=== PATIENT | male | born 1945 | race Caucasian/White ===

== ENCOUNTER 2017-01-16 08:30 | Outpatient (CLI) | payer MEDICARE, OTHER ==
[2017-01-16 09:19] LABS: Bilirubin Negative (Negative); Blood, Urine Negative (Negative); Glucose, Urine (Dipstick) Negative (Negative); Ketone, Urine Negative (Negative); Nitrite Negative (Negative); Protein, Urine (Dipstick) 30 mg/dL (Neg-Trace); Urobilinogen 0.2 mg/dL (0.2-1.0)
[2017-01-16 09:31] LABS: #Basophils 0.1 thou/uL (0.0-0.2); #Eosinphils 1.4 thou/uL (0.0-0.7); #Lymphocytes 1.2 thou/uL (1.20-3.40); #Monocytes 1.1 thou/uL (0.11-0.59); #Neutrophils 6.3 thou/uL (1.40-6.50); %Basophils 0.9 % (0.0-1.0); %Monocytes 10.5 % (0.0-10.0); Hematocrit 44.2 % (42.0-52.0); Mean Platelet Volume 6.3 fL (7.4-10.4); Red Blood Cell (RBC) Count 5.17 mill/uL (4.70-6.10)
[2017-01-16 09:43] LABS: Hemoglobin A1c 6.3 % (4.0-6.0)
[2017-01-16 09:44] LABS: ALT (SGPT) 19 U/L (0-55); AST (SGOT) 19 U/L (5-34); Alkaline Phosphatase 94 U/L (40-150); Anion Gap 16 mmol/L (10-20); BUN (Urea Nitrogen) 22 mg/dL (8.4-25.7); Bilirubin, Total 0.6 mg/dL (0.2-1.2); Calc. Creatinine Clearance 0 mL/min (70-130); Calcium 9.7 mg/dL (7.8-10.44); Carbon Dioxide 25 mmol/L (23-31); Chloride 101 mmol/L (98-107); Estimated GFR-MDRD 63; Globulin 3.5 g/dL (2.4-3.5); LDL Cholesterol, Calculated 87 mg/dL; Protein, Total 7.7 g/dL (5.8-8.1)
[2017-01-16 09:50] LABS: RBC/HPF 0-3 HPF (0-3)
[2017-01-16 16:39] LABS: Microalbumin Urine 13.2 mg/dL (0.5-50.0)
== END 2017-01-16 08:31 | disposition home or self-care (01) ==
LOC: NAV LAB 08:30
PROVIDERS: ATTEND Family Medicine
DX: Z11.59 Encounter for screening for other viral diseases (principal); I10 Essential (primary) hypertension; E55.9 Vitamin D deficiency, unspecified; E78.2 Mixed hyperlipidemia
CPT/HCPCS: 80053; 80061; 81001; 82043; 82306; 83036; 84443; 85025; 86803

== ENCOUNTER 2017-05-01 08:02 | Outpatient (CLI) | payer MEDICARE, OTHER ==
[2017-05-01 08:25] LABS: Hemoglobin A1c 6.7 % (4.0-6.0)
== END 2017-05-01 08:03 | disposition home or self-care (01) ==
LOC: NAV LAB 08:02
PROVIDERS: ATTEND Family Medicine
DX: E11.9 Type 2 diabetes mellitus without complications (principal)
CPT/HCPCS: 36415; 83036

== ENCOUNTER 2017-08-13 08:39 | Outpatient (CLI) | payer MEDICARE, OTHER ==
[2017-08-13 12:00] LABS: Hemoglobin A1c 6.5 % (4.0-6.0)
== END 2017-08-13 08:40 | disposition home or self-care (01) ==
LOC: NAV LAB 08:39
PROVIDERS: ATTEND Family Medicine
DX: E11.9 Type 2 diabetes mellitus without complications (principal)
CPT/HCPCS: 83036

== ENCOUNTER 2017-08-15 08:12 | Outpatient (CLI) | payer MEDICARE, OTHER ==
--- NOTE | 2017-08-15 11:02 | ULT ---
ABDOMINAL AORTIC SONOGRAM: Date: 08/15/17 HISTORY: Z13.6. FINDINGS: Good color and spectral Doppler flow is present within the abdominal aorta. Greatest AP diameter is 1.6 cm. No free fluid is evident within the retroperitoneum. IMPRESSION: No evidence of abdominal aortic aneurysm. POS: [id number]
== END 2017-08-15 08:13 | disposition home or self-care (01) ==
LOC: NAV ULT 08:12
PROVIDERS: ATTEND Family Medicine
DX: Z13.6 Encounter for screening for cardiovascular disorders (principal)
CPT/HCPCS: 76775

== ENCOUNTER 2022-02-12 22:50 | Emergency (ER) | payer MEDICARE, OTHER ==
[2022-02-12 23:26] LABS: #Basophils 0.1 thou/uL (0.0-0.2); #Eosinphils 0.4 thou/uL (0.0-0.7); #Lymphocytes 3.9 thou/uL (1.20-3.40); #Monocytes 0.4 thou/uL (0.11-0.59); #Neutrophils 6.6 thou/uL (1.40-6.50); %Basophils 1.2 % (0.0-1.0); %Eosinophils 3.3 % (0.0-10.0); %Lymphocytes 34.2 % (21.0-51.0); %Monocytes 3.7 % (0.0-10.0); %Neutrophils 57.7 % (42.0-75.0); Hemoglobin 12.6 g/dL (14.0-18.0); Mean Corpuscular HGB CONC 31.2 g/dL (32.0-36.0); Mean Corpuscular Hemoglobin 29.1 pg (27.0-31.0); Mean Corpuscular Volume 93.3 fL (78.0-98.0); Mean Platelet Volume 6.2 fL (7.4-10.4); Platelet Count 186 thou/uL (130-400); RBC Distribution Width 12.9 % (11.5-14.5); Red Blood Cell (RBC) Count 4.33 mill/uL (4.70-6.10); White Blood Cell (WBC) Count 11.5 thou/uL (4.8-10.8)
[2022-02-12 23:31] LABS: INR-International Normal Ratio 1.2
[2022-02-12 23:32] LABS: PTT 45.3 sec (22.9-36.1)
[2022-02-12 23:40] LABS: ALT (SGPT) 399 U/L (8-55); AST (SGOT) 343 U/L (5-34); Alkaline Phosphatase 99 U/L (40-110); Anion Gap 21 mmol/L (10-20); BUN (Urea Nitrogen) 32 mg/dL (8.4-25.7); Bilirubin, Total 0.2 mg/dL (0.2-1.2); Calc. Creatinine Clearance 0 mL/min (70-130); Calcium 9.6 mg/dL (7.8-10.44); Carbon Dioxide 19 mmol/L (23-31); Chloride 102 mmol/L (98-107); Globulin 3.2 g/dL (2.4-3.5); Glucose 421 mg/dL (83-110); Lipase 90 U/L (8-78); Potassium 3.6 mmol/L (3.5-5.1); Protein, Total 6.2 g/dL (5.8-8.1); Sodium 138 mmol/L (136-145)
[2022-02-12 23:58] LABS: CKMB 4.7 ng/mL (0-6.6)
[2022-02-13] MEDS ORDERED: Dextrose 5% in Water 250 ML ONE (01:44)
[2022-02-13 02:12] LABS: SARS-CoV-2 NAA Rapid Test Not Detected (NotDetected)
== END 2022-02-12 23:37 | disposition expired ==
LOC: NAV ERS 22:50
DX: I46.9 Cardiac arrest, cause unspecified (principal); E11.9 Type 2 diabetes mellitus without complications; E78.5 Hyperlipidemia, unspecified; I10 Essential (primary) hypertension; Z20.822 Contact with and (suspected) exposure to COVID-19
CPT/HCPCS: 31500; 36415; 36680; 43752; 80053; 82553; 83690; 84484; 85025; 85610; 85730; 92950; U0002